=== PATIENT | male | born 1945 | race Caucasian/White ===

== ENCOUNTER 2017-05-17 14:58 | Emergency (ER) | payer MEDICARE, BC ==
[~2017-05-17] VITALS: Ht 182.9 cm; Wt 94.2 kg
[~2017-05-17 14:58] MED LIST: ATENOLOL50 MG PO; FIORICET/COD PO; FLONASE NASAL50 MCG; LIPITOR10 MG PO; MELOXICAM7.5 MG PO; MUCINEX DM MAXI1 TAB PO; NAPROXEN250 MG PO; NORCO1 TA1 PO; PREVACID30 M3 PO; VITAMIN B-12500 MCG PO; ZYRTEC10 MG PO
[2017-05-17 17:00] LABS: HEMATOCRIT 50.3 % (39.0-50.0); HEMOGLOBIN 17.1 g/dl (14.0-18.0); IMMATURE GRANULOCYTES 0.6 % (0.0-1.0); MEAN CELL VOLUME 98.2 fL CALC (80.0-100.0); MEAN CORPUSCULAR HGB 33.4 pG CALC (26.0-32.0); NEUT# 8.98 thou/uL (1.82-7.42); RED BLOOD COUNT 5.12 mill/uL (4.70-6.10); RED CELL DISTRI WIDTH 13.1 % (11.5-15.5)
[2017-05-17 17:08] LABS: URINE BILIRUBIN - DIPSTICK NEGATIVE (NEGATIVE); URINE BLOOD DIPSTICK MODERATE (NEGATIVE); URINE COLOR YELLOW; URINE GLUCOSE - DIPSTICK NEGATIVE (NEGATIVE); URINE KETONE NEGATIVE (NEGATIVE); URINE LEUK ESTERASE NEGATIVE (NEGATIVE); URINE NITRITE - DIPSTICK NEGATIVE (Negative); URINE PROTEIN - DIPSTICK NEGATIVE (NEG-TRACE); URINE SPECIFIC GRAVITY >=1.030; URINE UROBILINOGEN - DIPSTICK 0.2 E.U./dL (0.2)
[2017-05-17 17:12] LABS: URINE CLARITY CLEAR
[2017-05-17 17:17] LABS: ALBUMIN 4.8 g/dL (3.2-5.0); ALKALINE PHOSPHATASE 123 u/l (38-126); AMYLASE 77 u/l (30-110); ANION GAP 18 (6-22 (CALC)); BILIRUBIN, TOTAL 0.5 mg/dL (0.0-1.4); BUN 21 mg/dL (8-23); BUN/CREATININE RATIO 16 (12-20 (CALC)); CARBON DIOXIDE 26 mmol/l (22-30); CHLORIDE 104 mmol/l (95-108); CREATININE 1.3 mg/dL (0.7-1.3); GFR 54 ML/MIN (>=60 (CALC)); GFR FOR AFR.AMER. > 60 ML/MIN (>=60 (CALC)); LIPASE 110 u/l (23-300); POTASSIUM 4.7 mmol/l (3.5-5.1); SGOT/AST 43 u/l (19-48); SGPT/ALT 39 u/l (11-66); SODIUM 142 mmol/l (137-146); TOTAL PROTEIN 7.6 g/dL (6.3-8.2)
[2017-05-17] MEDS ORDERED: CIPROFLOXACIN250 MG PO (17:29)
[2017-05-17] MEDS ORDERED: LORTAB 5/3255 MG PO (17:29)
[2017-05-17] MEDS ORDERED: TAMSULOSIN0.4 MG PO (17:29)
[2017-05-17 17:50] VITALS: BP 166/78
== END 2017-05-17 18:00 | disposition home or self-care (01) ==
LOC: ED 14:58
PROVIDERS: Emergency Medicine
DX: N13.2 Hydronephrosis with renal and ureteral calculous obstruction (principal); Z87.442 Personal history of urinary calculi; R10.31 Right lower quadrant pain; R10.11 Right upper quadrant pain; R19.7 Diarrhea, unspecified

== ENCOUNTER 2021-01-20 15:06 | Emergency (ER) | payer MEDICARE, BC ==
[~2021-01-20] VITALS: Ht 182.9 cm; Wt 100.0 kg
[~2021-01-20 15:06] MED LIST changes: +CIPROFLOXACIN250 MG PO; +LORTAB 5/3255 MG PO; +TAMSULOSIN0.4 MG PO
[2021-01-20] MEDS ORDERED: HYDROCO/APAP1 TA9 PO (16:05)
[2021-01-20 16:13] VITALS: BP 163/78
== END 2021-01-20 16:13 | disposition home or self-care (01) ==
LOC: ED 15:06
DX: S46.912A Strain of unspecified muscle, fascia and tendon at shoulder and upper arm level, left arm, initial encounter (principal); I10 Essential (primary) hypertension; W17.89XA Other fall from one level to another, initial encounter; Y93.89 Activity, other specified; Y92.007 Garden or yard of unspecified non-institutional (private) residence as the place of occurrence of the external cause; Z86.711 Personal history of pulmonary embolism; Z86.12 Personal history of poliomyelitis

== ENCOUNTER 2023-11-06 16:21 | Emergency (ER) | payer MEDICARE, BC ==
[~2023-11-06] VITALS: Ht 182.9 cm; Wt 86.0 kg
[~2023-11-06 16:21] MED LIST changes: +HYDROCO/APAP1 TA9 PO
[2023-11-06 16:40] VITALS: BP 135/64
[2023-11-06] MEDS ORDERED: SODIUM CHLORIDE 0.9% 10 ML SYR IR ONE (16:45)
[2023-11-06] MEDS ORDERED: Diph, Acellular Pertussis, Tet 0.5 ML/VIAL (Tdap) SDV IM ONE (16:45)
[2023-11-06] MEDS ORDERED: SILVER SULFADIAZINE 400 GM JAR TOP ONE (16:45)
[2023-11-06 17:00] VITALS: BP 132/61
[2023-11-06] MEDS ORDERED: SILVADENE1 % EX (17:00)
[2023-11-06] MEDS ORDERED: KEFLEX500 MG PO (17:00)
[2023-11-06 17:20] VITALS: BP 145/66
[2023-11-06 18:00] VITALS: BP 145/66
[2023-11-06] MEDS ORDERED: LORTAB 1010 MG PO (18:24)
[2023-11-07] MEDS ORDERED: HYDROCO/APAP1 TA9 PO (10:05)
[2023-11-07] MEDS ORDERED: MOTRIN400 MG/TAB PO (10:05)
== END 2023-11-06 18:00 | disposition home or self-care (01) ==
LOC: ED 16:21
PROC: 2W2MX4Z Dressing of Left Lower Extremity using Bandage (ICD-10-PCS; principal; 2023-11-06)
PROC: 2W2LX4Z Dressing of Right Lower Extremity using Bandage (ICD-10-PCS; 2023-11-06)
DX: T24.202A Burn of second degree of unspecified site of left lower limb, except ankle and foot, initial encounter (principal); T24.201A Burn of second degree of unspecified site of right lower limb, except ankle and foot, initial encounter; T31.0 Burns involving less than 10% of body surface; I10 Essential (primary) hypertension; E78.00 Pure hypercholesterolemia, unspecified; X04.XXXA Exposure to ignition of highly flammable material, initial encounter; Y93.89 Activity, other specified; Z86.711 Personal history of pulmonary embolism; Z86.12 Personal history of poliomyelitis

== ENCOUNTER 2023-11-07 09:19 | Emergency (ER) | payer MEDICARE, BC ==
[2023-11-07] VITALS (7 sets, daily range): BP systolic 101–141; BP diastolic 42–66
[~2023-11-07] VITALS: Ht 182.9 cm; Wt 96.2 kg
[~2023-11-07 09:19] MED LIST changes: +KEFLEX500 MG PO; +LORTAB 1010 MG PO; +SILVADENE1 % EX
[2023-11-07] MEDS ORDERED: SILVER SULFADIAZINE 50 GM/TUBE EA TOP ONE ×2 (09:50→10:10)
[2023-11-07] MEDS ORDERED: HYDROcodone 5 MG/Acetaminophen 325 MG/COMBO PO ONE (09:55)
[2023-11-07] MEDS ORDERED: MOTRIN400 MG/TAB PO (10:05)
[2023-11-07] MEDS ORDERED: HYDROCO/APAP1 TA9 PO (10:05)
[2023-11-07] MEDS ORDERED: SILVER SULFADIAZINE 400 GM JAR TOP ONE (10:15)
== END 2023-11-07 10:50 | disposition home or self-care (01) ==
LOC: ED 09:19
DX: T24.202D Burn of second degree of unspecified site of left lower limb, except ankle and foot, subsequent encounter (principal); T24.201D Burn of second degree of unspecified site of right lower limb, except ankle and foot, subsequent encounter; T31.0 Burns involving less than 10% of body surface; I10 Essential (primary) hypertension; X08.8XXD Exposure to other specified smoke, fire and flames, subsequent encounter; Z86.711 Personal history of pulmonary embolism

== ENCOUNTER 2024-03-26 08:03 | Inpatient (IN) | payer MEDICARE, BC ==
[2024-03-26] VITALS (33 sets, daily range): BP systolic 134–165; BP diastolic 60–129
[~2024-03-26] VITALS: Wt 96.3 kg
[~2024-03-26 08:03] MED LIST changes: +MOTRIN400 MG/TAB PO
[2024-03-26] MEDS ORDERED: ASPIRIN 81 MG/TAB PO ONE (08:10)
--- NOTE | 2024-03-26 08:20 | NUR ---
PT IN ROOM, PROVIDER AT BEDSIDE, PT MEDICATED PER EMAR, PTS SPOUSE AND SON AT BEDSIDE, PT DENIES ANY NEEDS AT THIS TIME, VSS, CALL LIGHT WITHIN REACH
[2024-03-26] MEDS ORDERED: ATENOLOL50 MG PO (08:41)
[2024-03-26] MEDS ORDERED: LOSARTAN POTASS25 MG PO (08:42)
[2024-03-26] MEDS ORDERED: EZETIMIBE10 MG PO (08:43)
[2024-03-26] MEDS ORDERED: GABAPENTIN100 MG PO (08:44)
[2024-03-26] MEDS ORDERED: ALFUZOSIN HCL E10 MG PO (08:45)
[2024-03-26] MEDS ORDERED: PROSCAR5 MG PO (08:46)
[2024-03-26] MEDS ORDERED: SINGULAIR10 MG PO (08:46)
[2024-03-26] MEDS ORDERED: VITAMIN C + PO (08:47)
[2024-03-26] MEDS ORDERED: VITAMIN D3 1.251 CAP PO (08:49)
[2024-03-26 08:58] LABS: BASO% 0.1 % (0-3); EOS% 1.7 % (0-8); IMMATURE GRANULOCYTES 0.4 % (0.0-5.0); LYMPH% 7.9 % (15-41); MEAN CELL VOLUME 101.2 fL CALC (80.0-100.0); MEAN CORPUSCULAR HGB 32.6 pG CALC (26.0-32.0); MEAN CORPUSCULAR HGB CONC 32.2 g/dL CAL (32.0-36.0); MONO% 11.4 % (2-13); NEUT# 5.85 thou/uL (1.82-7.42); NEUT% 78.5 % (42-76); RED BLOOD COUNT 4.02 mill/uL (4.70-6.10); RED CELL DISTRI WIDTH 14.4 % (11.5-15.5)
[2024-03-26 09:00] LABS: HEMATOCRIT 40.7 % (39.0-50.0); HEMOGLOBIN 13.1 g/dl (14.0-18.0)
[2024-03-26 09:19] LABS: ALBUMIN 4.1 g/dL (3.2-5.0); BILIRUBIN, TOTAL 0.7 mg/dL (0.2-1.3); CREATININE 1.3 mg/dL (0.7-1.3); POTASSIUM 4.3 mmol/l (3.5-5.1); TOTAL PROTEIN 6.7 g/dL (6.3-8.2)
--- NOTE | 2024-03-26 09:39 | NUR ---
PT RESTING IN BED, FAMILY AT SIDE, GAVE PT A WARM BLANKET, PT DENIES ANY OTHER NEEDS, VSS, CALL LIGHT WITHIN REACH
--- NOTE | 2024-03-26 10:30 | NUR ---
Reassessment of patient completed. No distress noted.
[2024-03-26] MEDS ORDERED: Heparin SODIUM (Porcine) 500 ML IV ONE (11:35)
[2024-03-26] MEDS ORDERED: Heparin SODIUM (Porcine) 5,000 UNITS/ML SDV IV ONE (11:35)
--- NOTE | 2024-03-26 12:42 | NUR ---
PT SITTING UP IN BED EATING LUNCH.
--- NOTE | 2024-03-26 13:20 | NUR ---
PT RESTING IN BED, VSS, CALL LIGHT WITH REACH, DENIES ANY NEEDS
[2024-03-26] MEDS ORDERED: ACETAMINOPHEN 325 MG/TAB PO PRN (13:40)
[2024-03-26] MEDS ORDERED: MAGNESIUM HYDROXIDE 30 ML UDC PO PRN (13:40)
[2024-03-26] MEDS ORDERED: ENOXAPARIN SODIUM 100 MG/ML SYR SC SCH (15:00)
--- NOTE | 2024-03-26 15:05 | NUR ---
CALLED ICU SPOKE WITH MODE, GAVE PT REPORT PT TO BE TRANSPORTED TO ICU BED 7
--- NOTE | 2024-03-26 15:17 | NUR ---
PATIENT ARRIVED TO THE UNIT VIA STRETCHER ACCOMPAINED BY ER NURSE. ASSESSMENT COMPLETED. PATIENT ALERT AND ORIENTED X 4. DENIES PAIN AT THIS TIME. LUNG CLEAR TO ASCULTATION. BREATHING EVEN AND UNLABORED ON ROOM AIR. PATIENT ORIENTED TO ROOM AND CALL MARS SYSTEM. VSS. NO APPARENT DISTRESS NOTED. OG COELLO WILL CONTINUE WITH PLAN OF CARE.
--- NOTE | 2024-03-26 15:51 | NUR ---
PATIENT ARRIVED TO THE UNIT AT 1517 VIA STRETCHER ACCOMPAINED BY ER NURSE. ASSESSMENT COMPLETED. PATIENT ALERT AND ORIENTED X 4. DENIES PAIN AT THIS TIME. LUNG CLEAR TO ASCULTATION. BREATHING EVEN AND UNLABORED ON ROOM AIR. PATIENT ORIENTED TO ROOM AND CALL MARS SYSTEM. VSS. NO APPARENT DISTRESS NOTED. OG COELLO WILL CONTINUE WITH PLAN OF CARE.
--- NOTE | 2024-03-26 16:00 | NUR ---
PT IS SITTING IN BED WATCHING TV. CALL LIGHT IN HAND.
[2024-03-26] MEDS ORDERED: GABAPENTIN 100 MG/CAP PO SCH (17:00)
[2024-03-26] MEDS ORDERED: hydrALAZINE HCL 20 MG/ML VIAL(1 ML) IV PRN (17:15)
--- NOTE | 2024-03-26 18:00 | NUR ---
PT IS WATCHING TV IN BED. CALL LIGHT IN REACH.
--- NOTE | 2024-03-26 20:45 | NUR ---
awake. denies resp distress. hospital security officer shows sinus rhythm. saline lock x2 in place. po fluids taken well. voids per urinal. fall precautions cont.
[2024-03-26] MEDS ORDERED: ATORVASTATIN CALCIUM 10 MG/TAB PO SCH (21:00)
[2024-03-27] VITALS (10 sets, daily range): BP systolic 130–144; BP diastolic 55–64
--- NOTE | 2024-03-27 00:01 | NUR ---
eyes closed. no distress. food consultant shows sinus rhythm.
--- NOTE | 2024-03-27 04:00 | NUR ---
eyes closed. home cpcp conts.
[2024-03-27 06:16] LABS: BASO% 0.2 % (0-3); EOS% 0.6 % (0-8); HEMATOCRIT 40.5 % (39.0-50.0); HEMOGLOBIN 12.6 g/dl (14.0-18.0); IMMATURE GRANULOCYTES 0.2 % (0.0-5.0); LYMPH% 11.1 % (15-41); MEAN CORPUSCULAR HGB 31.7 pG CALC (26.0-32.0); MEAN CORPUSCULAR HGB CONC 31.1 g/dL CAL (32.0-36.0); MONO% 19.1 % (2-13); NEUT# 5.59 thou/uL (1.82-7.42); NEUT% 68.8 % (42-76); RED BLOOD COUNT 3.97 mill/uL (4.70-6.10); RED CELL DISTRI WIDTH 14.5 % (11.5-15.5)
[2024-03-27 06:34] LABS: ALBUMIN 3.3 g/dL (3.2-5.0); BILIRUBIN, TOTAL 0.6 mg/dL (0.2-1.3); CREATININE 1.4 mg/dL (0.7-1.3); POTASSIUM 4.3 mmol/l (3.5-5.1); TOTAL PROTEIN 5.6 g/dL (6.3-8.2)
--- NOTE | 2024-03-27 08:00 | NUR ---
PT IS LAYING IN BED, AWAKE. CALL LIGHT IN HAND.
[2024-03-27] MEDS ORDERED: LOSARTAN Potassium 25 MG/TAB PO SCH (09:00)
[2024-03-27] MEDS ORDERED: MONTELUKAST SODIUM 10 MG/TAB PO SCH (09:00)
[2024-03-27] MEDS ORDERED: PANTOPRAZOLE SODIUM Sesquihydr 40 MG/TAB PO SCH (09:00)
[2024-03-27] MEDS ORDERED: ATENOLOL 50 MG/TAB PO SCH (09:00)
[2024-03-27] MEDS ORDERED: FINASTERIDE 5 MG/TAB PO SCH (09:00)
--- NOTE | 2024-03-27 10:12 | NUR ---
PT IS AWAKE WATCHING TV. CALL LIGHT IN HAND.
--- NOTE | 2024-03-27 12:00 | NUR ---
PT IS SITTING UP IN BED EATING LUNCH. CALL LIGHT IN REACH.
--- NOTE | 2024-03-27 14:08 | NUR ---
PT IS WAKE LAYING IN BED. CALL LIGHT IN REACH.
--- NOTE | 2024-03-27 15:59 | NUR ---
PT IS RESTING IN BED, EASILY AROUSABLE. CALL LIGHT IN REACH.
--- NOTE | 2024-03-27 18:12 | NUR ---
PT IS WATCHING TV. CALL LIGHT IN REACH.
--- NOTE | 2024-03-27 19:00 | NUR ---
RECEIVED REPORT FROM BEDSIDE RN. PATIENT IS STABLE AT THIS TIME, WITH NO COMPLAINTS, RESTING COMFORTABLY WITH CALL LIGHT WITHIN REACH
--- NOTE | 2024-03-27 22:00 | NUR ---
ASSISTED TO REPOSITION. PATIENT ASSISTED WITH CPAP WITH SUPPORT OF RESPIRATORY THERAPY. DENIES PAIN OR SOB AT THIS TIME. DEMONSTRATES UNDERSTANDING OF CALL LIGHT AND FALL PRECAUTIONS. EMPTIED URINAL, 250CC EUGENIO CLEAR URINE.
[2024-03-28] VITALS (8 sets, daily range): BP systolic 133–153; BP diastolic 56–81
--- NOTE | 2024-03-28 | NUR ---
PATIENT IS OBSERVED RESTING CALMY, SLEEPING COMFORTABLY WITH NO SIGN OF DISTRESS. CALL LIGHT NOTED WITHIN REACH
--- NOTE | 2024-03-28 04:41 | NUR ---
PATIENT CONTINUES TO REMAIN STABLE WITH NO COMPLAINTS AD CALL LIGHT WITHIN REACH
[2024-03-28 05:17] LABS: HEMATOCRIT 37.1 % (39.0-50.0); MEAN CELL VOLUME 100.8 fL CALC (80.0-100.0); MEAN CORPUSCULAR HGB 32.6 pG CALC (26.0-32.0); MEAN CORPUSCULAR HGB CONC 32.3 g/dL CAL (32.0-36.0); RED BLOOD COUNT 3.68 mill/uL (4.70-6.10); RED CELL DISTRI WIDTH 14.5 % (11.5-15.5)
[2024-03-28 05:25] LABS: ALBUMIN 3.1 g/dL (3.2-5.0); BILIRUBIN, TOTAL 0.6 mg/dL (0.2-1.3); CREATININE 1.5 mg/dL (0.7-1.3); POTASSIUM 4.4 mmol/l (3.5-5.1); TOTAL PROTEIN 5.4 g/dL (6.3-8.2)
--- NOTE | 2024-03-28 06:50 | NUR ---
BEDSIDE REPORT FROM JESSICA FOLEY. ASSUMED PT CARE.
--- NOTE | 2024-03-28 07:23 | NUR ---
DR. FRANCOIS AT BEDSIDE TO DISCUSS POC.
[2024-03-28] MEDS ORDERED: RIVAROXABAN 15 MG TAB PO SCH (09:00)
[2024-03-28] MEDS ORDERED: INFLUENZA VIRUS VACCINE FLUZONE HD 2024/25 0.5 ML INJ IM SCH (09:00)
--- NOTE | 2024-03-28 09:36 | NUR ---
PT OOB AMBULATING IN HALLWAY WITH RT AT THIS TIME.
--- NOTE | 2024-03-28 12:41 | NUR ---
DR. FRANCOIS AT BEDSIDE.
[2024-03-28] MEDS ORDERED: XARELTO20 MG PO (12:52)
--- NOTE | 2024-03-28 14:10 | NUR ---
IV site discontinued, cath intact. No edema , no redness, voices no discomfort.
--- NOTE | 2024-03-28 14:25 | NUR ---
Discharge instructions given. Patient verbalizes understanding of same. Discharged in stable condition via Wheelchair to Home with family. All belongings sent with pt.
== END 2024-03-28 14:25 | DRG 176 ==
LOC: ED 08:03 → ED-I 08:44 → ED 08:44 → ED-I 11:22 → ED 13:00 → ICU 13:01
PROVIDERS: Family Medicine; Internal Medicine; ADMIT Internal Medicine; ATTEND Internal Medicine
DX: I26.94 Multiple subsegmental thrombotic pulmonary emboli without acute cor pulmonale (principal); I82.411 Acute embolism and thrombosis of right femoral vein; R09.02 Hypoxemia; I10 Essential (primary) hypertension; E78.00 Pure hypercholesterolemia, unspecified; Z86.711 Personal history of pulmonary embolism; Z86.12 Personal history of poliomyelitis
CPT/HCPCS: 90662; J1644; J1650; Q9967